=== PATIENT | female | born 2005 | race Caucasian/White ===

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

== ENCOUNTER 2024-01-11 09:03 | Emergency (ER) | payer BC, SELFPAY ==
[~2024-01-11] VITALS: Ht 157.5 cm; Wt 68.9 kg
[2024-01-11 09:23] LABS: BASO % 0.3 % (0.0-1.0); EOS % 0.1 % (0.0-3.0); HEMATOCRIT 44.4 % (36.0-47.0); HEMOGLOBIN 14.5 g/dl (12.0-15.5); LYMPH # 0.8 10^3/uL (1.5-5.0); LYMPH % 8.9 % (24.0-44.0); MEAN CORPUSCULAR HEMOGLOBIN 28.9 pg (27.0-33.0); MEAN CORPUSCULAR HGB CONC 32.7 g/dl (32.0-36.5); MEAN CORPUSCULAR VOLUME 88.6 fl (80.0-96.0); MONO # 0.8 10^3/uL (0.0-0.8); MONO % 8.4 % (2.0-8.0); NEUTROPHILS # 7.6 10^3/uL (1.5-8.5); NEUTROPHILS % 82.1 % (36.0-66.0); PLATELET COUNT, AUTOMATED 285 10^3/uL (150-450); RED BLOOD COUNT 5.01 10^6/uL (4.00-5.40); WHITE BLOOD COUNT 9.3 10^3/uL (4.0-10.0)
[2024-01-11 10:15] LABS: LIPASE 23 U/L (12-53)
[2024-01-11 10:17] LABS: ALBUMIN 4.2 G/DL (3.2-5.2); ALKALINE PHOSPHATASE 89 U/L (46-116); ALT/SGPT 24 U/L (7.0-40); AST/SGOT 17 U/L (<34); BILIRUBIN,DIRECT 0.6 MG/DL (<0.4); BILIRUBIN,TOTAL 1.8 MG/DL (0.3-1.2); BLOOD UREA NITROGEN 13 MG/DL (9-23); CALCIUM LEVEL 9.2 MG/DL (8.5-10.1); CARBON DIOXIDE LEVEL 24 MMOL/L (20-31); CHLORIDE LEVEL 105 MMOL/L (98-107); CREATININE FOR GFR 0.66 MG/DL (0.55-1.30); GLUCOSE, FASTING 105 MG/DL (60-100); SODIUM LEVEL 137 MMOL/L (136-145); TOTAL PROTEIN 7.7 G/DL (5.7-8.2)
[2024-01-11 10:40] LABS: RSV AMPLIFICATION NEGATIVE (NEGATIVE)
[2024-01-11] MEDS: ONDANSETRON 4MG ORAL DISINTEGRATING TAB PO ONE (11:11)
[2024-01-11 12:09] LABS: HCG, SERUM QUALITATIVE NEGATIVE (NEGATIVE)
[2024-01-11] MEDS ORDERED: ONDA4TAB6 PO (12:16)
[2024-01-11 12:27] VITALS: BP 100/63; TEMP 97.2; O2SAT 98
== END 2024-01-11 12:38 | disposition home or self-care (01) ==
LOC: M ED 09:03
DX: R11.2 Nausea with vomiting, unspecified (principal); R19.7 Diarrhea, unspecified; F17.290 Nicotine dependence, other tobacco product, uncomplicated; F12.10 Cannabis abuse, uncomplicated; G40.89 Other seizures; Z79.899 Other long term (current) drug therapy

== ENCOUNTER → 2024-07-05 | Outpatient (REF) | payer BC, OTHER ==
[~2024-07-05] MED LIST changes: +ONDA-282 PO
== END ==
LOC: M LAB REF 16:05
PROVIDERS: ATTEND Physician Assistant
DX: B34.9 Viral infection, unspecified (principal)